=== PATIENT | female | born 1995 | race Caucasian/White ===

== ENCOUNTER 2023-07-25 17:31 | Emergency (ER) | payer OTHER ==
[~2023-07-25] VITALS: Ht 154.9 cm; Wt 68.0 kg
[2023-07-25 17:31] VITALS: BP_SYST 123; PULSE 93; RESP 16; TEMP 98.6; O2SAT 98
[2023-07-25 19:55] VITALS: BP_SYST 129; PULSE 89; RESP 16; TEMP 98.6; O2SAT 100
== END 2023-07-25 19:55 | disposition home or self-care (01) ==
LOC: SED 17:31
DX: F10.129 Alcohol abuse with intoxication, unspecified (principal); J45.909 Unspecified asthma, uncomplicated; Y90.9 Presence of alcohol in blood, level not specified
CPT/HCPCS: 99283; 96360; J7030